=== PATIENT | male | born 1950 | race African-American/Black ===

== ENCOUNTER 2017-10-30 10:31 | Day surgery (SDC) | payer MEDICARE, MEDICAID ==
[2017-10-20 10:43] VITALS: BMI 25.1
[~2017-10-30 10:31] MED LIST: Prevnar 13-Val Conj/PF 0.5 ML SYRINGE IM ONE
[2017-10-30 11:03] VITALS: BP 164/89; TEMP 98.4
[2017-10-30] MEDS ORDERED: HYDROcodone/Acetaminophen 5/325 mg Tablet ONE (11:11)
--- NOTE | 2017-10-30 13:06 | RAD ---
LUMBAR SPINE MYELOGRAM INDICATION: Low back pain, right hip pain, lumbar radiculopathy. PROCEDURE: After informed consent had been obtained, the patient was escorted to the interventional suite and pl aced on the procedural table. [employer] imaging was performed. The patient was placed into a prone posi tion. Skin on the low back was then prepped and draped in the standard sterile fashion and topical a nd regional soft tissue anesthesia was achieved with 1% lidocaine and sodium bicarbonate. L4-5 left interlaminar approach was selected, and a 22 gauge needle was uneventfully advanced into the thecal sac with clear color CSF. Subsequently, 10 cc Isovue-M 200 was instilled into the thecal sac under r eal time fluoroscopy. Appropriate opacification of thecal sac demonstrated with imaging stored for c onfirmation. The needle was then removed from the patient. The patient tolerated the procedure well and was then transferred to CT to undergo subsequent myelogram. Reference separate report for full details. FLUOROSCOPY DATA: 0.2 minutes intermittent fluoroscopy, 23.5 mGy. IMPRESSION: Technically successful lumbar myelogram as detailed above. POS: [facility]
--- NOTE | 2017-10-30 13:17 | CT ---
CT LUMBAR SPINE WITH CONTRAST CT LUMBAR MYELOGRAM: Date: 10/30/17 INDICATION: Low back pain, lumbar radiculopathy, right hip pain. FINDINGS: There is contrast opacification of the thecal sac status post myelogram procedure. There is chronic h eight loss of the L5 vertebral body with prominent inferior end plate irregularity and Schmorl's node formation. This numbering system places the iliolumbar ligaments at L5 segment, with lumbarization o f S1 segment. There is prominent degree of gas vacuum phenomenon of the L5-S1 disc space. Conus medullaris terminates at the L1-2 level. Incidental note of atherosclerosis within the imaged retroperitoneum. L5-S1: Broad based disc osteophyte complex is present, which results in mild ventral effacement of the termi nal thecal sac. Moderate bilateral neural foraminal stenosis is present. L4-5: There is a broad based disc bulge with moderate central canal stenosis. Moderate biforaminal stenosis present. There is increased AP diameter of the venous plexus/epidural fat posterior to the L5 verteb ral body, which may be result from adjacent mass effect from the abutting prominent size disc bulges at its cephalad and caudal aspects. L3-4: Mild to moderate central canal stenosis. There is a mild concentric disc bulge. Mild bilateral neural foraminal narrowing. L2-3: Mild effacement of ventral thecal sac with mild broad based disc bulge. There is no high grade forami nal stenosis. L1-2: No significant compromise of central canal or neural foramina. 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 IMPRESSION: Prominent disc degenerative change at L4-5 and L5-S1 resulting in moderate central canal and moderate bilateral neural foraminal stenosis. POS: [facility]
== END 2017-10-30 12:25 | disposition home or self-care (01) ==
LOC: RAD 10:31
PROVIDERS: ATTEND Neurological Surgery
PROC: B00B1ZZ Plain Radiography of Spinal Cord using Low Osmolar Contrast (ICD-10-PCS; principal; 2017-10-30)
DX: M54.16 Radiculopathy, lumbar region (principal); Z88.8 Allergy status to other drugs, medicaments and biological substances
CPT/HCPCS: 62304; 72132